=== PATIENT | female | born 1990 | race Native Hawaiian/Other Pacific Islander ===

== ENCOUNTER 2020-12-03 09:40 | Outpatient (CLI) | payer BC ==
[2020-12-03 10:25] LABS: PLATELET COUNT 386 K/uL (152-353)
[2020-12-03 10:47] LABS: SODIUM 139 mmol/L (136-145)
== END 2020-12-03 21:58 | disposition home or self-care (01) ==
LOC: RAD 09:40
PROVIDERS: ATTEND Nurse Practitioner Family
DX: R07.9 Chest pain, unspecified (principal)
CPT/HCPCS: 36415; 80053; 82550; 84484; 85027